=== PATIENT | female | born 1950 | race Caucasian/White ===

== ENCOUNTER 2024-01-29 05:33 | Day surgery (SDC) | payer OTHER, BC ==
[2024-01-21 10:44] VITALS: BMI 26.4
[2024-01-29 09:51] VITALS: TEMP 97.1
[2024-01-29 11:58] VITALS: BP 110/65; PULSE 95; RESP 17
== END 2024-01-29 10:33 | disposition home or self-care (01) ==
LOC: JASU-ENDO 05:33
PROVIDERS: ATTEND Internal Medicine Gastroenterology
PROC: 0DBK8ZX Excision of Ascending Colon, Via Natural or Artificial Opening Endoscopic, Diagnostic (ICD-10-PCS; 2024-01-29)
PROC: 0DBP8ZX Excision of Rectum, Via Natural or Artificial Opening Endoscopic, Diagnostic (ICD-10-PCS; 2024-01-29)
PROC: 06LY8CC Occlusion of Hemorrhoidal Plexus with Extraluminal Device, Via Natural or Artificial Opening Endoscopic (ICD-10-PCS; principal; 2024-01-29 09:00)
DX: Z12.11 Encounter for screening for malignant neoplasm of colon (principal); D12.8 Benign neoplasm of rectum; K63.5 Polyp of colon; K57.30 Diverticulosis of large intestine without perforation or abscess without bleeding; K62.89 Other specified diseases of anus and rectum
CPT/HCPCS: 82962; 88305-TC